=== PATIENT | female | born 1985 | race Caucasian/White ===

== ENCOUNTER 2017-07-31 11:36 | Observation (INO) ==
[2017-07-31] MEDS ORDERED: Betamethasone Acet/SodPhos 6 MG/ML MDV IM SCH (12:00)
--- NOTE | 2017-07-31 13:14 | OB/GYN Progress Note ---
Date of Encounter: 07/31/17 Time of Encounter: 12:30 - Assessment and Plan (1) NST (non-stress test) reactive on surveillance Current Visit: Yes Status: Acute NST reactive BMZ administered in L gluteal muscle - tolerated well Discharge home Subjective - Subjective Principal diagnosis: BMZ and NST Interval history: Pt presents for second administration of BMZ and NST per Dr. Torres. She denies concerns since yesterday. +FM. Denies LOF, VB, CTX. Objective - Vital Signs Vital Signs: Intake and Output 07/30/17 07/31/17 07/31/17 23:59 07:59 15:59 Other: Weight 74.933 kg Patient Weight 07/31/17 23:59 Weight 74.933 kg - Exam FHR: auscultation normal, category 1 FHR comments: Baseline 145 Moderate variability Accelerations present 10x10 Single variable deceleration FHR Category I No toco activity Auscultation: bilateral: normal Abdomen: Present: normal appearance, soft, gravid Uterus: Present: normal, firm
== END 2017-07-31 15:45 | disposition home or self-care (01) ==
LOC: 1NENULAB 11:36 → LANDD 11:36 → 1NENULAB 11:53 → EDSTATUS 12:20
PROVIDERS: ADMIT Advanced Practice Midwife; ATTEND Advanced Practice Midwife

== ENCOUNTER 2017-09-05 05:40 | Inpatient (IN) ==
[~2017-09-05 05:40] MED LIST: *HR* Nalbuphine 10 MG/ML AMPUL IVP PRN; Famotidine 20 MG/2 ML VIAL IVP PRN; Metoclopramide 10 MG/2 ML VIAL IVP PRN; Naloxone 0.4 MG/ML INJ IVP PRN; Ondansetron 4 MG/2 ML VIAL IVP PRN; Penicillin G Potassium 5,000,000 UNIT in 0.9 % Sodium Chloride Mini Bag 100 ML IVPB ONE
[2017-09-05] MEDS ORDERED: Ringers Solution, Lactated 1,000 ML IVC SCH (05:45)
[2017-09-05 06:08] LABS: Basophils % 0.4 %; Eosinophils # 0.1 K/mcL (0.0-0.6); Eosinophils % 0.5 %; Hematocrit 38.6 % (35.3-44.9); Hemoglobin 13.8 g/dL (11.5-15.4); Immature Granulocytes % 0.9 % (0-4); Lymphocytes # 1.3 K/mcL (0.6-4.6); Lymphocytes % 12.7 %; Mean Corpuscular HGB Conc 35.8 g/dL (31.6-35.5); Mean Corpuscular Hemoglobin 32.3 pg (28.0-33.3); Mean Corpuscular Volume 90.4 fL (83.0-100.0); Mean Platelet Volume 9.7 fL (9.4-12.4); Monocytes # 0.8 K/mcL (0.0-1.3); Monocytes % 7.7 %; Platelet Count 241 K/mcL (140-400); Red Blood Count 4.27 M/mcL (3.82-4.97); Red Cell Distribution Width 13.1 % (11.5-14.5); Segmented Neutrophils % 77.8 %
[2017-09-05 06:10] LABS: Amphetamine Screen,Urine Negative ng/mL (Cutoff=1000); Barbiturate Screen,Urine Negative ng/mL (Cutoff=200); Benzodiazepines Screen,Urine Negative ng/mL (Cutoff=200); Cannabinoid Screen,Urine Negative ng/mL (Cutoff = 50); Cocaine Screen,Urine Negative ng/mL (Cutoff= 300); Opiate Screen,Urine Negative ng/mL (Cutoff=300); Phencyclidine Screen,Urine Negative ng/mL (Cutoff=25)
--- NOTE | 2017-09-05 07:16 | OB/GYN History & Physical ---
Date of Encounter: 09/05/17 Time of Encounter: 06:50 Assessment and Plan (1) 36 weeks gestation of Current visit: Yes Status: Acute Admit to L&D for observation of labor GBS prophylaxis-penicillin Continuous monitoring May have Nubain or epidural upon request Recheck cervix in 2 hours Anticipate vaginal delivery Dr. Loco is OB diamond blender and is available as needed (2) Bipolar affective disorder Current visit: Yes Status: Acute Currently taking Zoloft Plan to stay for 2 days to assess mood Qualifiers: Active/Remission status: in partial remission Most recent bipolar episode type: depressed Qualified Code(s): F31.75 - Bipolar disorder, in partial remission, most recent episode depressed (3) with adoption planned, currently in third trimester Current visit: Yes Status: Acute Adoptive family en route Plan for open adoption History of Present Illness Chief complaint: SROM HPI: Ms. Lindsey is a 32 year old female at 36 weeks 5 days gestation with an estimated date of of 09/28/17 dated by early ultrasound. She presents today with complaint of "hearing a pop" around 3 this morning followed by large gush of water. She states shortly after that contractions started and have been anywhere from 5-7 minutes apart. She reports good movement and denies vaginal bleeding. Her has been complicated by her history of bipolar disorder. She is currently taking Zoloft 50 mg daily and states she has been compliant with her medication regimen. She was also recently diagnosed with symmetric IUGR from ultrasound. At that time all measurements were less than 10%. Anatomy scan showed velamentous cord insertion. Labs: B+ GBS unknown Hep B- HIV - T. Palladium - Rubella immune Varicella immune GC- CL+ and treated with zithromycin - no follow up testing done Past Med Surg Social Fam HX - Past Medical History Medical history: no medical history Psychiatric history: anxiety, bipolar, depression - Past Surgical History Surgical History: no surgical history - Social History Smoking Status: Former smoker Alcohol use: none Drug use: none - Family History Mother Living Status: Still Living Hx Family Endocrine Disorder: Yes (hypothyroid) Obstetrical History - Pregnancies : 1 Para: 0 Term: 0 : 0 Ab's: 0 Livin Medications and Allergies ARIPiprazole [Abilify] 5 mg PO DAILY 09/05/17 [History] Vits #90/Iron Fum/FA [ Formula Tablet] 1 tab PO DAILY 09/05/17 [History] Sertraline [Zoloft] 50 mg PO DAILY 09/05/17 [History] 3 Allergy/AdvReac Type Severity Reaction Status Date / Time No Known Allergies Allergy Verified 09/05/17 05:23 Review of System OB All systems PM: reviewed and no additional remarkable complaints except as stated Exam - Constitutional Constitutional: well developed, well nourished, average body habitus, mild distress - HEENT HEENT: Normocephaly, Mucus Membranes Moist - Neck Neck exam: full ROM - Lungs Respiratory exam: CTAB - Cardiovascular Cardiovascular exam: RRR, +S1, +S2 - Breasts Breast: bilateral: normal - Abdomen Abdomen: Present: bowel sounds normal, gravid, non tender - Extremities Extremities exam: normal capillary refill, normal inspection, radial pulses palpable and symmetrical - Vulva Vulva: bilateral: normal - Vagina Vagina: Present: normal moisture - Cervix Dilation: 4 Effacement: 80 Station: -2 - Uterus Uterus exam: Present: normal size, normal contour - Adnexa Adnexa: bilateral: normal - Anus/Rectum Anus/Rectum: Present: normal perianal skin Results Result Diagrams: 09/05/17 05:40 Abnormal lab results MCHC 35.8 g/dL (31.6-35.5) H 09/05/17 05:40 All other labs normal. - VTE Reasons for not Prescribing Prophylaxis: Treatment not Indicated - Low risk for VTE
--- NOTE | 2017-09-05 07:31 | Anesthesia Evaluation PreOp ---
Date of Encounter: 09/05/17 Time of Encounter: 07:29 - Past History Planned Operation: boris Cardiac History: Denies any Significant Hx Pulmonary History: Denies Any Significant HX FINE WIRE DRAWER History: Other (bipolar) Other Medical History: Denies Any Significant HX Anesthesia History: No Prior Anesthetic Complications (no prior anesthetics, no family history of anesthetic complications) : Yes (, 36 weeks plus 5) Alcohol Use: none Drug use: none Medications and Allergies ARIPiprazole [Abilify] 5 mg PO DAILY 09/05/17 [History] Vits #90/Iron Fum/FA [ Formula Tablet] 1 tab PO DAILY 09/05/17 [History] Sertraline [Zoloft] 50 mg PO DAILY 09/05/17 [History] 3 Allergy/AdvReac Type Severity Reaction Status Date / Time No Known Allergies Allergy Verified 09/05/17 05:23 - Meds/Allergy Pre-op Review Medications Reviewed: Yes Allergies Reviewed: Yes Beta Blockers on Current Med List: No Anesthesia Results - Labs 09/05/17 05:40 Anesthesia Exam O2 Sat Height 1.63 m Weight 78.5 kg 113/70 Height: 64 Weight: 173 - HEENT Pupil (Motor): Pupils equal Mallampati: I Teeth: Normal Oral Opening: Greater than 3 - FINE WIRE DRAWER LOC: Oriented FINE WIRE DRAWER Motor: Normal RUE, Normal LUE, Normal RLE, Normal LLE, Normal Face FINE WIRE DRAWER Sensory: Normal: RUE, LUE, RLE, LLE, Face - Cardiac Rhythm: Regular Murmur: None JVD: No Carotid Bruit: No - Pulmonary Breath Sounds: bilateral Clear Respiratory Effort: Symmetrical Anesthesia Assess/Plan ASA Score: 2 Modified [place] Scale for Level of Consciousness: Cooperative, oriented, and tranquil Anesthetic Plan: Regional Monitoring Plan: Standard Monitors
[2017-09-05] MEDS ORDERED: Bupivacaine-MPF 0.25% 10 ML VIAL EP ONE (07:34)
[2017-09-05] MEDS ORDERED: EPHEDrine 50 MG/ML VIAL IVP PRN (07:34)
[2017-09-05] MEDS ORDERED: *HR* FentaNYL (PF) 100 MCG/2 ML VIAL EP ONE (07:34)
[2017-09-05] MEDS ORDERED: Bupivacaine-MPF 0.5% 25 ML, FentaNYL (PF) 250 MCG in 0.9 % Sodium Chloride 80 ML EP SCH (07:45)
[2017-09-05] MEDS ORDERED: Epidural Premix (fent/bupiv) 110 ML EP SCH (07:45)
[2017-09-05] MEDS ORDERED: Epidural Premix (fent/bupiv) 110 ML EP ONE ×2 (07:51→15:56)
[2017-09-05] MEDS ORDERED: Bupivacaine-MPF 0.25% 10 ML VIAL ONE (07:51)
[2017-09-05] MEDS ORDERED: Penicillin G Potassium 2,500,000 UNIT in 0.9 % Sodium Chloride 100 ML IVPB SCH (08:00)
--- NOTE | 2017-09-05 08:30 | Anesthesia Procedures ---
Date of Encounter: 09/05/17 Time of Encounter: 08:29 Procedures: Anesthesia - Epidural/Spinal Patient ID/Chart reviewed: Yes Patient examined: Yes OB Eval: Gestational age: 36 OB Eval: : 1 OB Eval: Hx Para: 0 OB Eval: Dilated at (cm): 4 OB Eval: Contractions: Non-stressed pattern Consent Obtained: Yes Supplemental Oxygen: None/Room Air Site Prep: Aseptic Technique Patient position: upright Local Anesthetic: Lidocaine 1% Amount of Local Anesthetic used: 3 Touhy Needle Gauge: 18 Touhy Needle Depth (cm): 4 Catheter Depth at Skin (cm): 12 Test Dose (1.5% Lido + Epi): Volume given (mls): 3 Test Dose Result: Negative Loading Dose: 0.25% Marcaine (mls): 6 Loading Dose: Fentanyl (mcg): 100 Loading Dose Administered: Thru Touhy Needle Infusion Med: 0.125% Bupivacaine w/ 2 mcg/ml Fentanyl Infusion Rate (mls/hr): [address]: Tegaderm Interspace Used: L3-L4 Loss of Resistance (JEF): Yes Blood: No CSF: No Paresthesia: No
--- NOTE | 2017-09-05 10:31 | OB Labor Progress Note ---
Date of Encounter: 09/05/17 Time of Encounter: 10:29 Labor Progress Note - Subjective Subjective: Patient comfortable with epidural. She is tearful but remains confident in her decision did she is adoption. - Cervix Cervix: 7/90-100/-1 - Heart Tones Heart Tones: Baseline 150 Moderate variability Accelerations present 15x15 Early decelerations FHR Category I - [place]: Contractions every 3-4 minutes and palpate strong - Interventions Interventions: SVE - Plan Plan: Continue expectant management Position changes frequently Reassess two hours Anticipate
--- NOTE | 2017-09-05 13:15 | OB Labor Progress Note ---
Date of Encounter: 09/05/17 Time of Encounter: 13:14 Labor Progress Note - Subjective Subjective: Patient states she is feeling comfortable with epidural. - Cervix Cervix: 9/100/0 - Heart Tones Heart Tones: FHR category I - [place]: Contractions every 2-4 minutes and palpate strong - Interventions Interventions: SVE Peanut ball position right - Plan Plan: Continue expectant management Frequent position changes with peanut ball Anticipate
[2017-09-05] MEDS ORDERED: Oxytocin 20 units/ LR 1000 mL 20 UNIT/1,000 ML BAG IVC ONE (17:05)
[2017-09-05] MEDS ORDERED: ARIPiprazole 5 MG TABLET PO SCH (18:58)
--- NOTE | 2017-09-05 19:33 | OB Labor Progress Note ---
Date of Encounter: 09/05/17 Time of Encounter: 19:31 Labor Progress Note - Subjective Subjective: Patient is comfortable with epidural. She is pushing at this time. - Cervix Cervix: Complete - Heart Tones Heart Tones: Baseline 140 Moderate variability Accelerations present 15 x 15 Few decelerations including variable and early FHR category II - [place]: Contractions every 3-4 minutes and palpate strong - Interventions Interventions: Pushing with RN at bedside - Plan Plan: Continue expectant management Continue pushing Anticipate
[2017-09-05] MEDS ORDERED: Oxytocin 20 units/ LR 1000 mL 20 UNIT/1,000 ML BAG IVC SCH ×2 (19:45→23:52)
--- NOTE | 2017-09-05 23:02 | OB/GYN Procedure Note ---
Delivery - Delivery Date: 09/05/17 Provider: Marisel Saldivar Intrapartum events: prolonged 2nd stage>2.5hr Delivery induction: none Delivery augmentation: pitocin Delivery monitor: external FHT, external uterine Anesthesia: epidural Quantitated Blood Loss: 200 - (s) A Delivery Date: 09/05/17 Delivery Time: 22:05 Presentation: vertex Position: ROP Route of delivery: vacuum extraction Gender: Male Viability: Viable Pounds: 5 Ounces: 7 Weight Gram: 2.455 kg at 1 minute: 2 at 5 mins: 7 Shoulder Dystocia: not encountered Specimens collected: cord blood, venous cord gases, arterial cord gases Placenta: spontaneous Cord: 3 umbilical vessels - Repair Episiotomy: none Laceration Description: Periurethral (periclitoral), Perineal - 1st Degree, Labial (right) - Complications Delivery complications: none Delivery comments: Ms. Lindsey is a 32-year-old G1 now P1 who is admitted for spontaneous rupture membranes in early labor. She progressed spontaneously to the second stage of labor. She pushed for 4 hours. It was identified that the infant was experiencing distress, evidenced by a extreme tachycardia into the 200s along with late decelerations. Dr. Loco was called to the room to assist with vacuum extraction. Dr. Loco applied the vacuum and in 1 contraction the head was delivered with no pop offs. She delivered a viable male , ROP over a first-degree laceration. The infant was placed on the maternal abdomen where the umbilical cord was milked, clamped and cut by the contract manager. was moved to the warmer where resuscitation efforts were initiated and the presence of labor and delivery and nursery nurses. Respiratory therapy was called to bedside. No nuchal cord was identified. No shoulder dystocia was encountered. scores were 2 at 1 minute and 7 at 5 minutes. The placenta delivered ( Day) spontaneously, intact, with a three-vessel cord and velamentous insertion. Inspection revealed a first-degree perineal laceration and right labial laceration and central periclitoral laceration. The lacerations were repaired with 3-0 Monocryl and 4-0 Monocryl sutures. The uterus was firm with no active bleeding. The repair was done under epidural anesthesia. EBL was 200 mL. Placenta and umbilical artery blood gases were sent for processing. Infant was taken to nursery for observation after successful resuscitation. Both mother remains in labor and delivery. - Disposition Mom disposition: stable in LDR disposition: taken to nursery
[2017-09-05] MEDS ORDERED: Benzocaine/Menthol 56 GM AEROSOL SPRAY TP PRN (23:26)
[2017-09-05] MEDS ORDERED: Acetaminophen 325 MG TABLET PO PRN (23:52)
[2017-09-05] MEDS ORDERED: Ibuprofen 600 MG TABLET PO PRN (23:52)
[2017-09-06] MEDS ORDERED: Prenatal Vit/FA 1 EACH TABLET PO SCH (09:00)
[2017-09-06] MEDS ORDERED: NON-FORMULARY MEDICATION 1 EACH EACH (Prenatal Vits #90/Iron Fum/Fa [Prenatal Formula Tabl PO SCH (09:00)
[2017-09-06] MEDS ORDERED: Folic Acid 1 MG TABLET PO SCH (09:00)
--- NOTE | 2017-09-06 09:05 | Discharge Summary ---
Date of Encounter: 09/06/17 Time of Encounter: 09:03 - Discharge Diagnosis (1) Vaginal delivery Priority: Primary Status: Acute Comments: Stable in PP. Pt with flat affect, pt states pain well managed, tolerates diet, desires discharge, (2) Bipolar affective disorder Priority: Secondary Status: Acute Qualifiers: Active/Remission status: in partial remission Most recent bipolar episode type: depressed Qualified Code(s): F31.75 - Bipolar disorder, in partial remission, most recent episode depressed (3) with adoption planned, currently in third trimester Priority: Secondary Status: Acute - Discharge Medications Prescriptions: Ibuprofen [Motrin] 600 mg PO Q6HR PRN #60 tablet PRN Reason: Cramping Docusate [Colace] 100 mg PO BID #60 capsule Home Medications: ARIPiprazole [Abilify] 5 mg PO DAILY 09/05/17 [History] Vits #90/Iron Fum/FA [ Formula Tablet] 1 tab PO DAILY 09/05/17 [History] Sertraline [Zoloft] 50 mg PO DAILY 09/05/17 [History] Acetaminophen [Tylenol] 650 mg PO Q6HR PRN tablet 09/06/17 [Rx] Docusate [Colace] 100 mg PO BID #60 capsule 09/06/17 [Rx] Ibuprofen [Motrin] 600 mg PO Q6HR PRN #60 tablet 09/06/17 [Rx] Vit/FA 1 each PO DAILY tablet 09/06/17 [Rx] Allergies/Adverse Reactions: 3 Allergy/AdvReac Type Severity Reaction Status Date / Time No Known Allergies Allergy Verified 09/05/17 05:23 Data Procedures and tests throughout hospitalization: Laboratory Tests 09/05/17 09/05/17 05:40 05:40 WBC 10.3 RBC 4.27 Hgb 13.8 Hct 38.6 MCV 90.4 MCH 32.3 MCHC 35.8 H RDW 13.1 Plt Count 241 MPV 9.7 Immature Gran % 0.9 Seg Neutrophils % 77.8 Lymphocytes % 12.7 Monocytes % 7.7 Eosinophils % 0.5 Basophils % 0.4 Neutrophils # 8.0 Lymphocytes # 1.3 Monocytes # 0.8 Eosinophils # 0.1 Basophils # 0.0 Urine Opiates Screen Negative Ur Barbiturates Screen Negative Ur Phencyclidine Scrn Negative Ur Amphetamines Screen Negative U Benzodiazepines Scrn Negative Urine Cocaine Screen Negative U Marijuana (THC) Screen Negative Date of admission: 09/05/17 05:40 Consults: 09/05/17 23:52 Consult to Residential Concierge [CONS] Routine Comment: supression - infant for adoption Consult to Knife Finisher [CONS] Routine Reason for SW Consult: hx of depression and SI 09/06/17 08:41 Consult to Psychiatry [CONS] Routine Consulting Provider: Psychiatry Angela Reason for Consult: , bipolar, recent history SI/HI Time Notified: 08:41 Call Completed: Yes Discharging clinician: Lesley Reddy Anticipated date of discharge: 09/06/17 - Patient Status Disposition: Home, Self-Care Condition: Good Functional capacity at discharge: independent ambulation Overall status at discharge: patient is progressing back to baseline - Discharge Instructions Follow Up With: Fay Head CNM [Non-Partnered Physician] - - Diet and Activity Activity: resume usual activities as tolerated Diet: regular diet Hospital Course Reason for admission: active labor, IUP - Delivery: vacuum extraction Episiotomy: none Laceration: 1st degree, other (labial, periurethral) Other procedures: none complications: none Discharge diagnosis: delivery baby: male Hospital course: Delivery - Delivery Date: 09/05/17 Provider: Marisel Saldivar Intrapartum events: prolonged 2nd stage>2.5hr Delivery induction: none Delivery augmentation: pitocin Delivery monitor: external FHT, external uterine Anesthesia: epidural Quantitated Blood Loss: 200 - (s) Infant A Delivery Date: 09/05/17 Infant Delivery Time: 22:05 Presentation: vertex Position: ROP Route of delivery: vacuum extraction Gender: Male Viability: Viable Pounds: 5 Ounces: 7 Weight Gram: 2.455 kg at 1 minute: 2 at 5 mins: 7 Shoulder Dystocia: not encountered Specimens collected: cord blood, venous cord gases, arterial cord gases Placenta: spontaneous Cord: 3 umbilical vessels - Repair Episiotomy: none Laceration Description: Periurethral (periclitoral), Perineal - 1st Degree, Labial (right) - Complications Delivery complications: none Delivery comments: Ms. Lindsey is a 32-year-old G1 now P1 who is admitted for spontaneous rupture membranes in early labor. She progressed spontaneously to the second stage of labor. She pushed for 4 hours. It was identified that the was experiencing distress, evidenced by a extreme tachycardia into the 200s along with late decelerations. Dr. Loco was called to the room to assist with vacuum extraction. Dr. Loco applied the vacuum and in 1 contraction the head was delivered with no pop offs. She delivered a viable male , ROP over a first-degree laceration. The infant was placed on the maternal abdomen where the umbilical cord was milked, clamped and cut by the sawing and assembly supervisor. Infant was moved to the warmer where resuscitation efforts were initiated and the presence of labor and delivery and nursery nurses. Respiratory therapy was called to bedside. No nuchal cord was identified. No shoulder dystocia was encountered. scores were 2 at 1 minute and 7 at 5 minutes. The placenta delivered ( Day) spontaneously, intact, with a three-vessel cord and velamentous insertion. Inspection revealed a first-degree perineal laceration and right labial laceration and central periclitoral laceration. The lacerations were repaired with 3-0 Monocryl and 4-0 Monocryl sutures. The uterus was firm with no active bleeding. The repair was done under epidural anesthesia. EBL was 200 mL. Placenta and umbilical artery blood gases were sent for processing. Infant was taken to nursery for observation after successful resuscitation. Both mother remains in labor and delivery. - Disposition Mom disposition: stable in PP and appropriate for discharge, if cleared by psych. Time Attestation: Total time spent providing and/or coordinating discharge services: Time Spent: Less than 30 minutes Exam - Constitutional Vitals: Temp Pulse Resp BP Pulse Ox 97.9 F 56 16 110/74 97 09/06/17 07:37 09/06/17 07:37 09/06/17 07:37 09/06/17 07:37 09/06/17 07:37 General appearance IM: A&O X 3 - Respiratory Respiratory exam: Present: CTAB - Cardiovascular Cardiovascular exam IM: Present: RRR - GI/Abdominal GI/Abdominal exam IM: normal bowel sounds, soft - Uterine Tone: Firm Uterus Position: 1 Finger Below Umbilicus - Extremities Exam Extremities exam IM: Present: normal capillary refill, normal inspection - Neurological Exam Neurological exam: normal gait, oriented X3 - Psychiatric Additional comments: Very flat affect, denies SI
[2017-09-06] MEDS ORDERED: Benzocaine/Menthol 56 GM AEROSOL SPRAY TP PRN (10:57)
--- NOTE | 2017-09-06 14:02 | Consult Note ---
Date of Encounter: 09/06/17 Time of Encounter: 13:30 Assessment & Recommendation (1) Bipolar affective disorder Status: Acute Assessment & Recommendation: 1. From psychiatric standpoint patient is stable to be discharged to home with her family 2. Patient should continue her medication including Abilify and sertraline 3. Patient should continue to follow-up as outpatient with therapist and psychiatrist 4. Patient was advised to increase her therapy appointment to discuss her baby adoption issues and any other stressors that she is dealing with. 5. Patient is advised to come back to the hospital if she experienced any change in her condition or suicidal ideation. Thank you for consultation. Qualifiers: Active/Remission status: in partial remission Most recent bipolar episode type: depressed Qualified Code(s): F31.75 - Bipolar disorder, in partial remission, most recent episode depressed History of Present Illness Patient: new to practice Requesting Physician: Jerzy Alva MD Reason for consult: History of depression and bipolar, patient is History of present illness: Ms. kwong is a 32 year old female who is one day after delivering a baby. Psychiatric consultation was requested to evaluate patient history of bipolar depression and recent suicidal ideation episode while she was . I was told the patient decided to give the baby for adoption this is her first and first baby. Patient tells me that she experience mental health's problems with depression and bipolar since age 16 she had been treated and hospitalized in the past she also had a history of substance abuse including alcohol and marijuana that are not currently active. She reported having episode of suicidal ideation in the last few weeks that resulted into on admission to [facility] for a few days. Patient is comfortable was her decision to give the baby up for adoption and she believe she is not able capable at this time to care for him and she will now focus on her own problems and issues. 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 Patient is established as an outpatient with a therapist and a psychiatrist and she is on medication including Abilify and sertraline. CC: Jerzy Alva MD Past Med Surg Social Fam HX - Past Medical History Medical history: no medical history - Past Psychiatric History Psychiatric history: Reports: bipolar, depression, previous psychiatric hospitalization - Past Surgical History Surgical History: no surgical history - Social History Smoking Status: Former smoker Alcohol use: none Drug use: none - Family History Mother Living Status: Still Living Hx Family Endocrine Disorder: Yes (hypothyroid) Medications & Allergies ARIPiprazole [Abilify] 5 mg PO DAILY 09/05/17 [History] Vits #90/Iron Fum/FA [ Formula Tablet] 1 tab PO DAILY 09/05/17 [History] Sertraline [Zoloft] 50 mg PO DAILY 09/05/17 [History] Acetaminophen [Tylenol] 650 mg PO Q6HR PRN tablet 09/06/17 [Rx] Docusate [Colace] 100 mg PO BID #60 capsule 09/06/17 [Rx] Ibuprofen [Motrin] 600 mg PO Q6HR PRN #60 tablet 09/06/17 [Rx] Vit/FA 1 each PO DAILY tablet 09/06/17 [Rx] 3 Allergy/AdvReac Type Severity Reaction Status Date / Time No Known Allergies Allergy Verified 09/05/17 05:23 Psychiatry Exam - Constitutional Vitals: Temp Pulse Resp BP Pulse Ox 97.9 F 56 16 110/74 97 09/06/17 07:37 09/06/17 07:37 09/06/17 07:37 09/06/17 07:37 09/06/17 07:37 General appearance: age & developmentally appropriate, well-groomed, well- nourished, average - Musculoskeletal Gait: normal Station: relaxed Strength & Tone: normal for patient - Psychiatric Patient Orientation: Yes Person, Yes Time, Yes Place Level of alertness: Alert Behavior: calm, cooperative Psychomotor activity: Normal Eye Contact: Maintains Eye Contact Mood Description: Euthymic/stable Affect description: congruent with mood, full range Speech Volume: Normal Speech pattern: normal rate, normal rhythm, normal tone, fluent, spontaneous Language & Vocabulary: consistent with education Thought Process: Linear, Goal Oriented Thought Content: No Suicidal ideation, No Homicidal ideation, No Overt delusions Perceptual Disturbances: No Auditory hallucinations, No Visual hallucinations Attention Span Ability: Capable of Focused Attention Memory Description: Grossly Intact Patient Reliability: Reliable Historian Fund of knowledge: Yes abstraction ability, Yes aware of current events Intelligence Estimate: Average Judgment: Limited Insight: Partial Results - Labs Labs: Laboratory Last Values WBC 10.3 K/mcL (4.3-11.1) 09/05/17 05:40 RBC 4.27 M/mcL (3.82-4.97) 09/05/17 05:40 Hgb 13.8 g/dL (11.5-15.4) 09/05/17 05:40 Hct 38.6 % (35.3-44.9) 09/05/17 05:40 MCV 90.4 fL (83.0-100.0) 09/05/17 05:40 MCH 32.3 pg (28.0-33.3) 09/05/17 05:40 MCHC 35.8 g/dL (31.6-35.5) H 09/05/17 05:40 RDW 13.1 % (11.5-14.5) 09/05/17 05:40 Plt Count 241 K/mcL (140-400) 09/05/17 05:40 MPV 9.7 fL (9.4-12.4) 09/05/17 05:40 Immature Gran % 0.9 % (0-4) 09/05/17 05:40 Seg Neutrophils % 77.8 % 09/05/17 05:40 Lymphocytes % 12.7 % 09/05/17 05:40 Monocytes % 7.7 % 09/05/17 05:40 Eosinophils % 0.5 % 09/05/17 05:40 Basophils % 0.4 % 09/05/17 05:40 Neutrophils # 8.0 K/mcL (1.6-8.9) 09/05/17 05:40 Lymphocytes # 1.3 K/mcL (0.6-4.6) 09/05/17 05:40 Monocytes # 0.8 K/mcL (0.0-1.3) 09/05/17 05:40 Eosinophils # 0.1 K/mcL (0.0-0.6) 09/05/17 05:40 Basophils # 0.0 K/mcL (0.0-0.2) 09/05/17 05:40 Urine Opiates Screen Negative ng/mL (Jijgvt=047) 09/05/17 05:40 Ur Barbiturates Screen Negative ng/mL (Qcxavk=061) 09/05/17 05:40 Ur Phencyclidine Scrn Negative ng/mL (Cutoff=25) 09/05/17 05:40 Ur Amphetamines Screen Negative ng/mL (Zmrwkq=6385) 09/05/17 05:40 U Benzodiazepines Scrn Negative ng/mL (Cahwxl=033) 09/05/17 05:40 Urine Cocaine Screen Negative ng/mL (Cutoff= 300) 09/05/17 05:40 U Marijuana (THC) Screen Negative ng/mL (Cutoff = 50) 09/05/17 05:40 Consult Discharge Plan - Plan Referrals: Fay Head CNM [Non-Partnered Physician] - Prescriptions: Ibuprofen [Motrin] 600 mg PO Q6HR PRN #60 tablet PRN Reason: Cramping Docusate [Colace] 100 mg PO BID #60 capsule
[2017-09-06 15:19] VITALS: BP 111/73
[2017-09-06] MEDS ORDERED: ARIPiprazole 5 MG TABLET PO SCH (18:00)
== END 2017-09-06 17:47 | disposition home or self-care (01) | DRG 560 ==
LOC: 1NENULAB → MERGE 05:40 → 1NENUOBS 09-06 00:56
PROVIDERS: ADMIT Obstetrics & Gynecology; ATTEND Obstetrics & Gynecology

== ENCOUNTER 2020-04-01 13:22 | Inpatient (IN) ==
[2020-04-01] MEDS ORDERED: Isovue-370 500 ML BOTTLE IVP ONE (14:13)
[2020-04-01] MEDS ORDERED: Ketorolac 30 MG/ML VIAL IVP ONE (14:14)
[2020-04-01] MEDS ORDERED: 0.9 % Sodium Chloride 1,000 ML IV ONE (14:14)
[2020-04-01 14:35] LABS: Basophils # 0.1 K/mcL (0.0-0.2); Basophils % 0.3 %; Eosinophils # 0.1 K/mcL (0.0-0.6); Eosinophils % 0.6 %; Hematocrit 42.2 % (35.3-44.9); Hemoglobin 13.7 g/dL (11.5-15.4); Immature Granulocytes % 1.1 % (0-4); Lymphocytes # 1.2 K/mcL (0.6-4.6); Mean Corpuscular HGB Conc 32.5 g/dL (31.6-35.5); Mean Corpuscular Hemoglobin 30.2 pg (28.0-33.3); Mean Corpuscular Volume 93.2 fL (83.0-100.0); Mean Platelet Volume 9.1 fL (9.4-12.4); Monocytes # 1.2 K/mcL (0.0-1.3); Monocytes % 5.2 %; Neutrophils # 20.7 K/mcL (1.6-8.9); Platelet Count 349 K/mcL (140-400); Red Blood Count 4.53 M/mcL (3.82-4.97); Red Cell Distribution Width 12.1 % (11.5-14.5); Segmented Neutrophils % 87.8 %; White Blood Count 23.6 K/mcL (4.3-11.1)
[2020-04-01 14:40] LABS: Alanine Aminotransferase 14 Units/L (7-52); Albumin 4.2 g/dL (3.5-5.7); Albumin/Globulin Ratio 1.3 (1.1-2.2); Alkaline Phosphatase 66 Units/L (34-104); Aspartate Amino Transferase 14 Units/L (13-39); BUN/Creatinine Ratio 10 (6-26); Bilirubin,Total 0.7 mg/dL (0.3-1.0); Blood Urea Nitrogen 11 mg/dL (6-20); Calcium 9.4 mg/dL (8.6-10.3); Carbon Dioxide 23 mEq/L (23-29); Chloride 102 mEq/L (98-107); Globulin 3.2 g/dL (2.4-3.5); Glucose 130 mg/dL (70-105); Osmolality,Calculated 279 (280-300); Potassium 3.8 mEq/L (3.5-5.1); Sodium 134 mEq/L (136-145); Total Protein 7.4 g/dL (6.4-8.9); eGFR For African Americans > 60 (> 60); eGFR For Non-African Americans > 60 (> 60)
[2020-04-01] MEDS ORDERED: Vancomycin 1,500 MG/265 ML IV.SOLN IVPB ONE (16:35)
[2020-04-01] MEDS ORDERED: Piperacillin/Tazobactam 3.375 GM in 0.9 % Sodium Chloride Mini Bag 100 ML IVPB ONE (16:35)
[2020-04-01] MEDS ORDERED: Naloxone 0.4 MG/ML INJ IVP PRN (17:08)
[2020-04-01] MEDS ORDERED: Ondansetron 4 MG/2 ML VIAL IVP PRN (17:08)
[2020-04-01] MEDS: Lactobacillus 1 EACH CAP.SPRINK PO SCH (18:47)
[2020-04-01] MEDS: Acetaminophen 325 MG TABLET PO PRN (18:47)
[2020-04-01] MEDS: *HR* Heparin 5,000 UNIT/ML VIAL SQ SCH (22:51)
[2020-04-01] MEDS: Piperacillin/Tazobactam 3.375 GM in 0.9 % Sodium Chloride Mini Bag 100 ML IVPB SCH (22:51)
[2020-04-01] MEDS ORDERED: Lithium Carbonate 300 MG CAPSULE PO SCH (23:45)
[2020-04-02] MEDS: Acetaminophen 325 MG TABLET PO PRN ×3 (01:39→16:04)
[2020-04-02] MEDS: Vancomycin 1,500 MG/265 ML IV.SOLN IVPB SCH ×2 (05:52→17:55)
[2020-04-02] MEDS: *HR* Heparin 5,000 UNIT/ML VIAL SQ SCH ×3 (06:11→20:37)
[2020-04-02] MEDS: Piperacillin/Tazobactam 3.375 GM in 0.9 % Sodium Chloride Mini Bag 100 ML IVPB SCH ×2 (07:37→16:04)
[2020-04-02] MEDS: Lactobacillus 1 EACH CAP.SPRINK PO SCH (07:38)
[2020-04-02 07:52] LABS: Hematocrit 38.1 % (35.3-44.9); Mean Corpuscular HGB Conc 31.5 g/dL (31.6-35.5); Mean Corpuscular Hemoglobin 30.2 pg (28.0-33.3); Mean Platelet Volume 8.9 fL (9.4-12.4); Platelet Count 328 K/mcL (140-400); Red Blood Count 3.97 M/mcL (3.82-4.97); Red Cell Distribution Width 12.2 % (11.5-14.5); White Blood Count 18.3 K/mcL (4.3-11.1)
[2020-04-02 08:04] LABS: BUN/Creatinine Ratio 10 (6-26); Blood Urea Nitrogen 10 mg/dL (6-20); Calcium 8.4 mg/dL (8.6-10.3); Carbon Dioxide 23 mEq/L (23-29); Chloride 109 mEq/L (98-107); Chol/HDL Ratio 3.7 (0-4.9); Cholesterol 137 mg/dL (< 200); Glucose 117 mg/dL (70-105); HDL Cholesterol 37 mg/dL (40-59); LDL Cholesterol,Calculated 87 mg/dL (< 100); Magnesium 2.3 mg/dL (1.6-2.6); Osmolality,Calculated 284 (280-300); Potassium 4.3 mEq/L (3.5-5.1); Sodium 137 mEq/L (136-145); Triglycerides 65 mg/dL (< 150); eGFR For African Americans > 60 (> 60); eGFR For Non-African Americans > 60 (> 60)
[2020-04-02] MEDS ORDERED: Lithium Carbonate 300 MG CAPSULE PO SCH ×2 (09:00→23:37)
[2020-04-02 10:37] LABS: Adenovirus Not Detected (Not Detect); Bordetella Pertussis Not Detected (Not Detect); Chlamydophila pneumoniae Not Detected (Not Detect); Coronavirus 229E Not Detected (Not Detect); Coronavirus HKU1 Not Detected (Not Detect); Coronavirus NL63 Not Detected (Not Detect); Coronavirus OC43 Not Detected (Not Detect); Human Metapneumovirus Not Detected (Not Detect); Human Rhinovirus/Enterovirus Not Detected (Not Detect); Influenza A Subtype 2009 H1 Not Detected (Not Detect); Influenza B Not Detected (Not Detect); Mycoplasma pneumoniae Not Detected (Not Detect); Parainfluenza Virus 1 Not Detected (Not Detect); Parainfluenza Virus 2 Not Detected (Not Detect); Parainfluenza Virus 3 Not Detected (Not Detect); Parainfluenza Virus 4 Not Detected (Not Detect); Respiratory Syncytial Virus Not Detected (Not Detect); SARS-CoV-2 Not Detected (Not Detect)
[2020-04-02] MEDS: Lithium Carbonate 300 MG CAPSULE PO SCH (17:55)
[2020-04-03] MEDS: Piperacillin/Tazobactam 3.375 GM in 0.9 % Sodium Chloride Mini Bag 100 ML IVPB SCH ×3 (01:03→15:56)
[2020-04-03 05:10] LABS: Hematocrit 36.8 % (35.3-44.9); Hemoglobin 11.7 g/dL (11.5-15.4); Mean Corpuscular HGB Conc 31.8 g/dL (31.6-35.5); Mean Corpuscular Hemoglobin 29.9 pg (28.0-33.3); Mean Corpuscular Volume 94.1 fL (83.0-100.0); Mean Platelet Volume 8.5 fL (9.4-12.4); Platelet Count 353 K/mcL (140-400); Red Blood Count 3.91 M/mcL (3.82-4.97); Red Cell Distribution Width 12.1 % (11.5-14.5)
[2020-04-03 05:29] LABS: BUN/Creatinine Ratio 7 (6-26); Blood Urea Nitrogen 8 mg/dL (6-20); Calcium 8.9 mg/dL (8.6-10.3); Carbon Dioxide 25 mEq/L (23-29); Chloride 104 mEq/L (98-107); Glucose 118 mg/dL (70-105); Osmolality,Calculated 277 (280-300); Potassium 4.2 mEq/L (3.5-5.1); Sodium 134 mEq/L (136-145); eGFR For African Americans > 60 (> 60); eGFR For Non-African Americans 58 (> 60)
[2020-04-03] MEDS: *HR* Heparin 5,000 UNIT/ML VIAL SQ SCH ×3 (06:26→19:18)
[2020-04-03] MEDS: Vancomycin 1,500 MG/265 ML IV.SOLN IVPB SCH ×2 (06:47→17:36)
[2020-04-03] MEDS: Lactobacillus 1 EACH CAP.SPRINK PO SCH (07:33)
[2020-04-03] MEDS: Clindamycin 600 MG/50 ML 600 MG/50 ML IV.SOLN IVPB SCH ×2 (10:21→15:56)
[2020-04-03] MEDS: Acetaminophen 325 MG TABLET PO PRN (15:56)
[2020-04-03] MEDS: Lithium Carbonate 300 MG CAPSULE PO SCH (17:36)
[2020-04-04] MEDS: Piperacillin/Tazobactam 3.375 GM in 0.9 % Sodium Chloride Mini Bag 100 ML IVPB SCH ×4 (00:10→22:56)
[2020-04-04] MEDS: Clindamycin 600 MG/50 ML 600 MG/50 ML IV.SOLN IVPB SCH ×4 (00:10→22:55)
[2020-04-04] MEDS: *HR* Heparin 5,000 UNIT/ML VIAL SQ SCH ×3 (04:19→22:53)
[2020-04-04 05:43] LABS: Basophils # 0.1 K/mcL (0.0-0.2); Basophils % 0.5 %; Eosinophils # 0.2 K/mcL (0.0-0.6); Eosinophils % 1.5 %; Hematocrit 36.9 % (35.3-44.9); Hemoglobin 11.8 g/dL (11.5-15.4); Lymphocytes # 1.4 K/mcL (0.6-4.6); Lymphocytes % 10.1 %; Mean Corpuscular Hemoglobin 29.4 pg (28.0-33.3); Mean Platelet Volume 8.7 fL (9.4-12.4); Monocytes # 1.2 K/mcL (0.0-1.3); Monocytes % 8.4 %; Neutrophils # 11.2 K/mcL (1.6-8.9); Platelet Count 391 K/mcL (140-400); Red Blood Count 4.01 M/mcL (3.82-4.97); Red Cell Distribution Width 11.9 % (11.5-14.5); Segmented Neutrophils % 78.5 %; White Blood Count 14.3 K/mcL (4.3-11.1)
[2020-04-04] MEDS: Vancomycin 1,500 MG/265 ML IV.SOLN IVPB SCH ×2 (05:46→17:54)
[2020-04-04 06:08] LABS: BUN/Creatinine Ratio 11 (6-26); Blood Urea Nitrogen 10 mg/dL (6-20); Calcium 9.2 mg/dL (8.6-10.3); Carbon Dioxide 22 mEq/L (23-29); Chloride 106 mEq/L (98-107); Glucose 120 mg/dL (70-105); Osmolality,Calculated 280 (280-300); Potassium 4.4 mEq/L (3.5-5.1); Sodium 135 mEq/L (136-145); eGFR For African Americans > 60 (> 60); eGFR For Non-African Americans > 60 (> 60)
[2020-04-04] MEDS ORDERED: Ketorolac 30 MG/ML VIAL IVP PRN ×2 (07:19→11:19)
[2020-04-04] MEDS ORDERED: *HR* Midazolam HCl 2 MG/2 ML VIAL ONE (07:19)
[2020-04-04] MEDS ORDERED: *HR* Propofol 200 MG/20 ML VIAL IVP ONE (07:19)
[2020-04-04] MEDS ORDERED: *HR* OxyCODONE/APAP 5/325 TABLET PO PRN (07:19)
[2020-04-04] MEDS ORDERED: Ondansetron 4 MG/2 ML VIAL IVP PRN ×3 (07:19→11:19)
[2020-04-04] MEDS ORDERED: *HR* FentaNYL (PF) 100 MCG/2 ML VIAL ONE (07:19)
[2020-04-04] MEDS ORDERED: Lidocaine -MPF 2% 2 ML VIAL ONE (07:20)
[2020-04-04] MEDS ORDERED: Dexamethasone 4 MG/ML VIAL ONE (07:20)
[2020-04-04] MEDS ORDERED: Acetaminophen IV 1,000 MG/100 ML BAG IVPB ONE (07:26)
[2020-04-04] MEDS ORDERED: *HR* Vasopressin 20 UNIT/ML VIAL ONE (07:26)
[2020-04-04] MEDS ORDERED: Ringers Solution, Lactated 1,000 ML IVC SCH ×2 (07:30→11:19)
[2020-04-04] MEDS: Lactobacillus 1 EACH CAP.SPRINK PO SCH (07:45)
[2020-04-04] MEDS ORDERED: Naloxone 0.4 MG/ML INJ IVP PRN (11:19)
[2020-04-04] MEDS ORDERED: Acetaminophen 325 MG TABLET PO PRN (11:19)
[2020-04-04] MEDS ORDERED: Lithium Carbonate 300 MG CAPSULE PO SCH (17:00)
[2020-04-05] MEDS: *HR* Heparin 5,000 UNIT/ML VIAL SQ SCH (05:51)
[2020-04-05] MEDS: Vancomycin 1,500 MG/265 ML IV.SOLN IVPB SCH (05:52)
[2020-04-05 06:48] VITALS: BP 102/63
[2020-04-05] MEDS ORDERED: Lactobacillus 1 EACH CAP.SPRINK PO SCH (09:00)
[2020-04-05] MEDS: Piperacillin/Tazobactam 3.375 GM in 0.9 % Sodium Chloride Mini Bag 100 ML IVPB SCH ×2 (09:18→10:14)
[2020-04-05] MEDS: Clindamycin 600 MG/50 ML 600 MG/50 ML IV.SOLN IVPB SCH ×2 (09:20→10:14)
[2020-04-05] MEDS ORDERED: FLU Vac QV 20-21 (6Month+)/PF 0.5 ML SYRINGE IM ONE (10:18)
[2020-04-05 10:58] LABS: Basophils # 0.1 K/mcL (0.0-0.2); Basophils % 0.8 %; Eosinophils # 0.1 K/mcL (0.0-0.6); Eosinophils % 0.8 %; Hematocrit 39.4 % (35.3-44.9); Hemoglobin 12.3 g/dL (11.5-15.4); Immature Granulocytes % 3.1 % (0-4); Lymphocytes % 12.1 %; Mean Corpuscular HGB Conc 31.2 g/dL (31.6-35.5); Mean Corpuscular Hemoglobin 29.4 pg (28.0-33.3); Mean Platelet Volume 8.6 fL (9.4-12.4); Monocytes # 1.4 K/mcL (0.0-1.3); Monocytes % 8.2 %; Neutrophils # 12.6 K/mcL (1.6-8.9); Platelet Count 476 K/mcL (140-400); Red Blood Count 4.19 M/mcL (3.82-4.97); Red Cell Distribution Width 11.8 % (11.5-14.5); White Blood Count 16.8 K/mcL (4.3-11.1)
== END 2020-04-05 12:41 | disposition home or self-care (01) | DRG 872 ==
LOC: EMEROOARM 13:22 → 3ANU 13:22 → SUATTDRO 17:51 → 3ANU 18:21
PROVIDERS: ADMIT Student in an Organized Health Care Education/Training Program; ATTEND Internal Medicine